=== PATIENT | male | born 1990 | race Caucasian/White ===

== ENCOUNTER 2022-01-28 15:36 | Day surgery (SDC) | payer OTHER ==
[~2022-01-28] VITALS: Ht 180.3 cm; Wt 83.9 kg
[2022-01-28 16:34] LABS: HCT 47.5 % (42.0-52.0); HGB 16.5 g/dl (13.2-18.0); MCHC 34.7 g/dL (32.0-36.0); MCV 86.4 fL (78.0-100.0); MPV 10.5 fL (6.0-9.5); RBC 5.5 M/uL (4.70-6.00); RDW 12.2 % (11.5-14.0); WBC 7.4 K/uL (4.0-10.5)
[2022-01-28 17:02] LABS: CREATININE 1.03 mg/dL (0.67-1.17); POTASSIUM 3.8 mmol/L (3.5-5.1); TOTAL PROTEIN 7.9 g/dL (6.4-8.2)
[2022-01-28 17:03] LABS: ALBUMIN 4.3 g/dL (3.4-5.0); BILIRUBIN - TOTAL 0.4 mg/dL (0.2-1.0); GLOBULIN (CALCULATION) 3.6 g/dL
[2022-01-28] MEDS ORDERED: MOTRIN600 MG PO (18:33)
[2022-01-28] MEDS ORDERED: OXY-IR 5MG5 MG PO (18:33)
[2022-01-28] MEDS ORDERED: ACETAMINOPHEN500 M1 PO (18:33)
[2022-01-28] MEDS ORDERED: COLACE100 MG PO (18:33)
== END 2022-01-28 21:19 | disposition home or self-care (01) ==
LOC: FAS 15:36 → FMS 15:49 → FAS 21:19
PROVIDERS: Student in an Organized Health Care Education/Training Program
DX: K35.80 Unspecified acute appendicitis (principal); I10 Essential (primary) hypertension; N20.0 Calculus of kidney; Z20.822 Contact with and (suspected) exposure to COVID-19
CPT/HCPCS: 36415; 80053; J1100; J1170; J1644; J1885; J2405; J2543; J2704; J2710; J3010; J7120; U0002